=== PATIENT | male | born 1980 | race Two or more races ===

== ENCOUNTER 2016-10-01 04:12 | Emergency (ER) | payer SELFPAY ==
[~2016-10-01] VITALS: Ht 190.5 cm; Wt 102.1 kg
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
--- NOTE | 2016-10-01 04:28 | NUR ---
pt refusing any pain medication, agitated, very demanding, states he wants to be sutured right away and doesn't want anything else. notified.
[2016-10-01 04:29] LABS: BASOPHILS # (AUTO) 0.1 /CMM (0.0-0.2); BASOPHILS % (AUTO) 0.3 % (0.0-2.0); EOSINOPHILS # (AUTO) 0.3 /CMM (0.0-0.7); EOSINOPHILS % (AUTO) 1.5 % (0.0-6.0); HEMATOCRIT 47 % (39-51); HEMOGLOBIN 15.7 g/dL (13.5-17.5); LYMPHOCYTES # (AUTO) 6.9 /CMM (0.8-4.8); LYMPHOCYTES % (AUTO) 40.4 % (20.0-44.0); MEAN CORPUSCULAR HEMOGLOBIN 33 PG (26.0-33.0); MEAN CORPUSCULAR HGB CONC 33 g/dl (31.0-36.0); MEAN CORPUSCULAR VOLUME 97 fL (80-96); MONOCYTES % (AUTO) 5.6 % (2.0-12.0); NEUTROPHILS # (AUTO) 8.9 /CMM (1.8-8.9); NEUTROPHILS % (AUTO) 52.2 % (43.0-81.0); PLATELET COUNT (AUTO) 347 /CMM (150-450); RDW COEFFICIENT OF VARIATION 12.9 (11.5-15.0); RED BLOOD CELL COUNT(AUTO) 4.82 MIL/uL (4.5-6.0)
[2016-10-01] MEDS ORDERED: IV NS 0.9% 1,000 ML BAG IV ONE (04:30)
[2016-10-01] MEDS ORDERED: TDAP [DIPH/PERTUSSIS/TET] 0.5 ML VIAL IM ONE (04:30)
[2016-10-01] MEDS ORDERED: LIDOCAINE /MPF 1% VIAL 5 ML VIAL IJ ONE (04:30)
--- NOTE | 2016-10-01 04:32 | NUR ---
[employer] officers at bedside talking w/ pt.
[2016-10-01 04:41] LABS: CALCIUM, SERUM 9.2 mg/dL (8.5-10.1); CARBON DIOXIDE 14 mmol/L (21-32); CHLORIDE 101 mmol/L (98-107); CREATININE 1.6 mg/dL (0.6-1.3); GLUCOSE 101 mg/dL (74-106); POTASSIUM 3.5 mmol/L (3.5-5.1); SODIUM SERUM 144 mmol/L (136-145); UREA NITROGEN, BLOOD 14 mg/dL (7-18)
--- NOTE | 2016-10-01 04:41 | NUR ---
pt refusing xrays. Dr. Dodge at bedside talking to pt. pt continues to refuse xrays, being very demanding, cursing, verbally abusive to staff. Only wants to be sutured, threatening to leave without being treated. [employer] officers continue to be at bedside talking to pt.
[2016-10-01 04:43] LABS: ALCOHOL, BLOOD < 3 mg/dL (0-0)
[2016-10-01] MEDS: FENTANYL PF 100MCG/2ML AMPUL IV ONE ×2 (04:44→05:26)
--- NOTE | 2016-10-01 04:46 | NUR ---
pt now agreeing to xrays. XR lt femur at bedside.
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
--- NOTE | 2016-10-01 05:01 | NUR ---
pt lying in bed w/ eyes closed, refusing to answer any questions, resp even & unlabored, VSS w/ nad noted. EMT at bedside for wound irrigation bilateral thigh lac & rt cheek w/ NS.
[2016-10-01] MEDS ORDERED: LIDOCAINE HCL/PF 1% 30 ML SDV ONE (05:14)
[2016-10-01] MEDS ORDERED: FENTANYL PF 100MCG/2ML AMPUL ONE (05:19)
--- NOTE | 2016-10-01 05:26 | NUR ---
Dr. Dodge at bedside for application sutures bilateral thigh & rt cheek lacerations. pt now requesting for pain medication. Administered as ordered.
[2016-10-01] MEDS ORDERED: HYDROMORPHONE 1 MG/1 ML DISP.SYRIN ONE (05:34)
--- NOTE | 2016-10-01 05:40 | NUR ---
Per verbal order, Dr. Dodge, administered dilaudid 1mg IVP as ordered for continued BLE thigh pain.
--- NOTE | 2016-10-01 06:05 | NUR ---
Dr. Dodge continues to be at bedside for suture application BLE.
[2016-10-01] MEDS ORDERED: SILVER NITRATE APPLICATOR 1 EA BOX ONE (06:10)
[2016-10-01] MEDS ORDERED: HYDROMORPHONE 1 MG/1 ML DISP.SYRIN IV ONE (06:30)
--- NOTE | 2016-10-01 06:38 | NUR ---
Sutures to rt cheek, ble thigh lacerations intact w/ wound edges well approximated, no active bleeding noted. EMT at bedside for wound dressing bilateral thigh lacerations.
[2016-10-01] MEDS ORDERED: CEFAZOLIN 2 GM ONE (06:47)
--- NOTE | 2016-10-01 06:51 | NUR ---
pt asleep in bed w/ resp even & unlabored, nad noted. pt medicated w/ IV antibiotics as ordered.
[2016-10-01] MEDS ORDERED: CEFAZOLIN 2 GM in IV D5W 100 ML IV ONE (07:00)
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
--- NOTE | 2016-10-01 08:20 | NUR ---
RAUDEL EMT AT FOR CLEANING THE WOUND.
--- NOTE | 2016-10-01 08:40 | NUR ---
IV removed. Catheter intact and site benign. Pressure and 4x4 applied to site. No bleeding noted.
--- NOTE | 2016-10-01 08:50 | NUR ---
Patient discharged to home with friend in stable condition. Written and verbal after care instructions given. Patient verbalizes understanding of instruction.
[2016-10-01 08:55] VITALS: BP 118/75
== END 2016-10-01 08:55 | disposition home or self-care (01) ==
LOC: EDBD 04:14 → ER 04:14
DX: S71.112A Laceration without foreign body, left thigh, initial encounter (principal); S01.411A Laceration without foreign body of right cheek and temporomandibular area, initial encounter; S71.111A Laceration without foreign body, right thigh, initial encounter; Y04.0XXA Assault by unarmed brawl or fight, initial encounter; Y92.89 Other specified places as the place of occurrence of the external cause; Y93.89 Activity, other specified; Y99.8 Other external cause status
CPT/HCPCS: 12011; 12034; 13121; 13122 ×2; 36415; 73552; 80048; 82962; 85025; 86850; 96365; 96375; 99291; A4606; A6403; G0480; J0690 ×2; J1170; J3010; J3490; J7060 ×2; Z7610

== ENCOUNTER 2016-10-03 07:33 | Emergency (ER) | payer SELFPAY ==
[~2016-10-03] VITALS: Ht 182.9 cm; Wt 88.5 kg
[2016-10-03 07:37] VITALS: BP 124/83
[2016-10-03] MEDS ORDERED: WATER FOR INJECTION,STERILE 10 ML ONE (08:17)
[2016-10-03] MEDS ORDERED: CEFAZOLIN 1 GM ONE (08:17)
[2016-10-03] MEDS ORDERED: CEFAZOLIN 1 GM VIAL IM ONE (08:30)
== END 2016-10-03 08:35 | disposition home or self-care (01) ==
LOC: ER 07:36
DX: S71.112A Laceration without foreign body, left thigh, initial encounter (principal)
CPT/HCPCS: 96372; 99283; A4606; A6402; J0690; Z7610

== ENCOUNTER 2019-05-18 23:28 | Emergency (ER) | payer OTHER ==
[~2019-05-18] VITALS: Ht 180.3 cm; Wt 79.4 kg
[2019-05-18 23:28] VITALS: BP 126/74
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
--- NOTE | 2019-05-18 23:44 | NUR ---
JOSE ANGEL LOPEZ AND STONE AT BEDSIDE [id number])
[2019-05-18] MEDS ORDERED: HYDROCODONE/APAP 10/325MG 1 EA TABLET ONE (23:46)
[2019-05-18] MEDS ORDERED: CEPHALEXIN MONOHYDRATE 500 MG CAPSULE PO ONE (23:46)
[2019-05-18] MEDS ORDERED: SULFAMETH/TRIMETH 800/160 MG 1 UDTAB TABLET ONE (23:46)
--- NOTE | 2019-05-18 23:53 | NUR ---
XRAY AT BEDSIDE
[2019-05-19] MEDS ORDERED: SULFAMETH/TRIMETH 800/160 MG 1 UDTAB TABLET PO ONE
[2019-05-19] MEDS ORDERED: CEPHALEXIN MONOHYDRATE 500 MG CAPSULE PO ONE
[2019-05-19] MEDS ORDERED: HYDROCODONE/APAP 10/325MG 1 EA TABLET PO ONE
--- NOTE | 2019-05-19 00:29 | NUR ---
Patient discharged to home in stable condition. Written and verbal after care instructions given. Patient verbalizes understanding of instruction.
== END 2019-05-19 00:29 ==
LOC: ER 23:28
DX: S93.492A Sprain of other ligament of left ankle, initial encounter (principal); L03.116 Cellulitis of left lower limb; X50.1XXA Overexertion from prolonged static or awkward postures, initial encounter; Y93.89 Activity, other specified; Y92.89 Other specified places as the place of occurrence of the external cause; Y99.8 Other external cause status
CPT/HCPCS: 73610-TC